=== PATIENT | female | born 1950 | race Caucasian/White ===

== ENCOUNTER → 2016-06-04 | Outpatient (CLI) | payer OTHER, MEDICARE | LOC: CIMAGING 10:32 | PROVIDERS: ATTEND Internal Medicine | DX: R05 Cough (principal) | CPT/HCPCS: 71020-PO ==

== ENCOUNTER → 2016-09-04 | Outpatient (CLI) | payer OTHER, MEDICARE | LOC: BRMIMAGING 14:06 | PROVIDERS: ATTEND Internal Medicine | DX: M19.071 Primary osteoarthritis, right ankle and foot (principal); M19.072 Primary osteoarthritis, left ankle and foot; M79.641 Pain in right hand; M79.642 Pain in left hand | CPT/HCPCS: 73130-PO; 73630-PO ==

== ENCOUNTER → 2016-10-11 | Outpatient (CLI) | payer OTHER, MEDICARE | LOC: CIMAGING 10:12 | PROVIDERS: ATTEND Internal Medicine | DX: Z12.31 Encounter for screening mammogram for malignant neoplasm of breast (principal) | CPT/HCPCS: G0202 ==

== ENCOUNTER 2016-12-15 07:11 | Emergency (ER) | payer OTHER, MEDICARE ==
[2016-12-15 07:24] VITALS: BP 113/85; PULSE 93; RESP 16; TEMP 98.4; O2SAT 96
[2016-12-15] MEDS ORDERED: GABAPENTIN 300 MG CAP PO ONE (07:39)
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
[2016-12-15] MEDS ORDERED: DEXAMETHASONE 4 MG TAB PO ONE (08:10)
== END 2016-12-15 08:17 | disposition home or self-care (01) ==
LOC: CED 07:11
DX: S64.12XA Injury of median nerve at wrist and hand level of left arm, initial encounter (principal); J45.909 Unspecified asthma, uncomplicated; I10 Essential (primary) hypertension; Z87.891 Personal history of nicotine dependence; X58.XXXA Exposure to other specified factors, initial encounter; Y92.410 Unspecified street and highway as the place of occurrence of the external cause
CPT/HCPCS: 73130; 99283; L3908

== ENCOUNTER → 2017-10-14 | Outpatient (CLI) | payer OTHER, MEDICARE | LOC: CIMAGING 10:52 | PROVIDERS: ATTEND Internal Medicine | DX: Z12.31 Encounter for screening mammogram for malignant neoplasm of breast (principal) ==